=== PATIENT | male | born 2000 | race African-American/Black ===

== ENCOUNTER 2024-06-10 13:07 | Emergency (ER) | payer MEDICAID ==
[~2024-06-10] VITALS: Ht 180.3 cm; Wt 57.0 kg
[2024-06-10 13:23] VITALS: O2SAT 100
[2024-06-10] MEDS ORDERED: AMOX1TAB16 PO (14:53)
[2024-06-10 15:33] VITALS: BP 106/58; PULSE 82; RESP 16; TEMP 36.9; O2SAT 100
== END 2024-06-10 15:34 | disposition home or self-care (01) ==
LOC: ER 13:07
DX: R55 Syncope and collapse (principal); K04.7 Periapical abscess without sinus
CPT/HCPCS: 71045; 93005; 99283

== ENCOUNTER 2024-07-11 12:48 | Emergency (ER) | payer MEDICAID, OTHER ==
[~2024-07-11] VITALS: Ht 180.3 cm; Wt 54.0 kg
[~2024-07-11 12:48] MED LIST: AMOX1TAB16 PO
[2024-07-11 13:20] VITALS: O2SAT 99
[2024-07-11 14:03] LABS: BASOPHILS % 0.7 % (0.0-2.0); EOSINOPHILS % 3.6 % (0.0-5.0); HEMATOCRIT. 40.4 % (42.0-52.0); HEMOGLOBIN. 13.5 g/dL (14.0-18.0); LYMPHOCYTES % 34.4 % (20.0-50.0); MEAN CORPUSCULAR HGB CONC 33.5 g/dL (31.0-37.0); MEAN CORPUSCULAR VOLUME 92.5 fL (80.0-94.0); MEAN PLATELET VOLUME 8.1 fl (7.4-10.4); MONOCYTES % 7.9 % (2.0-8.0); NEUTROPHILS % 53.4 % (40.0-76.0); PLATELET 286 x1000/uL (130-400); RED BLOOD CELL COUNT 4.37 mill/uL (4.7-6.1); RED CELL DISTRIBUTION WIDTH 13.4 % (11.6-14.6)
[2024-07-11 14:16] LABS: CHLORIDE 103 mEq/L (98-107); POTASSIUM 4.3 mEq/L (3.5-5.1); SODIUM 141 mEq/L (136-145)
[2024-07-11 14:17] LABS: CALCIUM 10.3 mg/dL (8.7-10.4); CARBON DIOXIDE 30 mEq/L (21-32)
[2024-07-11 14:22] LABS: GLUCOSE 80 mg/dL (70-105); UREA NITROGEN BLOOD 9 mg/dL (9-23)
[2024-07-11 14:24] LABS: TROPONIN I HIGH SENSITIVITY 18 ng/L (3.0-53)
[2024-07-11] MEDS ORDERED: IBUP-2029 MT (14:43)
[2024-07-11 15:12] VITALS: BP 120/60; PULSE 77; RESP 12; TEMP 37.1; O2SAT 99
== END 2024-07-11 15:40 | disposition home or self-care (01) ==
LOC: ER 12:48
DX: R07.89 Other chest pain (principal); J45.909 Unspecified asthma, uncomplicated; Z91.010 Allergy to peanuts; Z91.013 Allergy to seafood
CPT/HCPCS: 36415; 71045; 80048; 84484; 85025; 93005; 99285